=== PATIENT | female | born 1945 | race Caucasian/White ===

== ENCOUNTER → 2016-10-18 | Outpatient (CLI) | payer OTHER ==
[~2016-10-18] MED LIST: ACTOS; CLARITIN10 MG PO; GLYNASE PO; LISINOPRIL; METFORMIN PO; VYTORIN 10/20 T1 TAB
[2016-10-20 07:35] LABS: MICROALB UR (PNL) 0.3 mg/dL (***)
== END | disposition home or self-care (01) ==
LOC: CLAB 08:43
PROVIDERS: Internal Medicine Endocrinology, Diabetes & Metabolism
DX: E11.65 Type 2 diabetes mellitus with hyperglycemia (principal)
CPT/HCPCS: 36415; 82043; 82570; 83036

== ENCOUNTER → 2017-02-02 | Outpatient (CLI) | payer OTHER ==
[2017-02-02 12:01] LABS: BILIRUBIN,TOTAL 0.7 mg/dL (0.2-2.0); BUN/CREATININE RATIO 18.18; CALCIUM SERUM 9.3 mg/dL (8.4-10.2); CREATININE SERUM 1.1 mg/dL (0.6-1.4); GLOM FILT RATE Estimated 50.5 mL/min (>60); POTASSIUM 4.3 mmol/L (3.5-5.1); PROTEIN TOTAL SERUM 6.7 g/dL (6.0-8.3)
[2017-02-04 01:48] LABS: MICROALB UR (PNL) 0.2 mg/dL (***)
== END | disposition home or self-care (01) ==
LOC: CLAB 10:57
PROVIDERS: Internal Medicine Endocrinology, Diabetes & Metabolism
DX: E11.65 Type 2 diabetes mellitus with hyperglycemia (principal); E78.4 Other hyperlipidemia
CPT/HCPCS: 36415; 80053; 80061; 82043; 82570; 83036